=== PATIENT | female | born 1970 | race Caucasian/White ===

== ENCOUNTER 2018-09-19 06:32 | Observation (INO) | payer OTHER ==
[~2018-09-19] VITALS: Ht 158.5 cm; Wt 78.5 kg
[2018-09-19 09:15] VITALS: BP 113/55; PULSE 77; RESP 20
--- NOTE | 2018-09-19 10:17 | HP ---
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 She was in her usual state of health until June 14 when she developed heavy menses with clots. Usually she has light flow lasting 7 days with no clots, but 2 years ago she noticed brown discharge prior to her menses which was new. Since June menses have been heavier than normal and irregular. She has no had hot flashes during this time. Then yesterday she developed very heavy vaginal bleed with clots, soaking through pads every 1-2 hours. She presented to [place] ED. Initial vitals unremarkable, afebrile, not tachy, normotensive. Labs notable for microcytic anemia MCV 77, Hgb 6.2. Transfused 1 unit pRBCs. Also got pelvic ultrasound showing normal myometrium with no fibroids; but with thick endometrial stripe 16 mm and a cervical nabothian cyst. ROS Denies recent fever, chills, weight loss, anorexia, headache, vision changes, dyspnea, cough, chest pain/pressure/palpitations, nausea, vomiting, diarrhea, constipation, dysuria. PMH/Family/Social Past Medical History Iron-def anemia, not currently taking iron. Past Surgical History C section in 2008 Cervical dysplasia in childhood. Social History Alcohol Use: none Smoking Status: Never smoker Drug Use: none Exam/Review of Systems Vital Signs Vitals Vital Signs Date Temp Pulse Resp B/P (MAP) Pulse Ox O2 O2 Flow FiO2 Time Delivery Rate 09/19/18 98.0 77 20 113/55 99 Room Air 09:15 (74) Exam Exam Gen: Well developed overweight woman in no acute distress. Eyes: PERRL, no icterus HEENT: Moist mucous membranes, clear oropharynx Neck: No lymphadenopathy Card: Regular rate and rhythm, no murmurs Pulm: Clear to auscultation throughout. Abd: Soft, nontender, nondistended. Ext: No cyanosis/clubbing/edema : Pads in place not soaked through yet. BEVERLY COOK MD Sep 19, 2018 10:17
[2018-09-19] MEDS ORDERED: ONDANSETRON 4 MG INJ IV PRN (10:30)
[2018-09-19] MEDS ORDERED: NACL 0.9% 3 ML SYG IV SCH (10:30)
[2018-09-19] MEDS ORDERED: ACETAMINOPHEN 325 MG TAB PO PRN (10:30)
--- NOTE | 2018-09-19 11:21 | CONS ---
Assessment/Plan Assessment/Plan Assessment/Plan (Daily) 48-year-old perimenopausal with menometrorrhagia/abnormal uterine bleeding and severe anemia Status post 2 units of packed RBC blood transfusion I discussed with the patient that an endometrial biopsy should be done as an outpatient to rule out any evidence of possible endometrial carcinoma I recommended Provera 20 mg nightly and iron daily Patient's questions were answered and she understands the plan of care Patient should be arranged by complex case manager for an appointment with a lighting adviser as an outpatient Consultation Date/Type/Reason Admit Date/Time Sep 19, 2018 at 07:55 Date of Consultation: Sep 19, 2018 Type of Consult Gynecology Reason for Consultation Vaginal bleeding Date/Time of Note DATE: 09/19/18 TIME: 11:13 Hx of Present Illness Patient is a 48-year-old 4 para 4 who presents with chief complaint of menometrorrhagia/passing blood clots since June 2018 She was initially seen at a [facility] yesterday for severe vaginal bleeding and subsequently transferred to the [facility] this morning Pelvic ultrasound at [place] reviewed indicating uterus measuring 10.5 cm with an endometrial lining of 16 mm, no evidence of leiomyomas Bilateral adnexa within normal limits Patient currently is not on any medication and denies taking any oral contraception Medical history is negative Surgical history significant for x1 Family history significant mother who had a hysterectomy for fibroids Patient denies any family history of gynecology related cancers Social history is negative Constitutional: no complaints, improved Eyes: no complaints ENT: no complaints Respiratory: no complaints Cardiovascular: no complaints Gastrointestinal: no complaints Genitourinary: no complaints Musculoskeletal: no complaints Skin: no complaints Neurologic: no complaints Endocrine: no complaints Lymphatic: no complaints Psychological: no complaints, nl mood/affect Immunologic: no complaints Past Medical History Medical History: no pertinent history Medications Current Medications IV Flush (NS 3 ml) 3 ml PER PROTOCOL IV ; Start 09/19/18 at 10:30; Status UNV Ondansetron HCl (Zofran Inj) 4 mg Q6H PRN IV NAUSEA/VOMITING; Start 09/19/18 at 10:30; Status UNV Acetaminophen (Tylenol Tab) 650 mg Q6H PRN PO .PAIN 1-3 OR TEMP; Start 09/19/18 at 10:30; Status UNV Past Surgical History x1 Past Surgical Hx: other ( x1) Family History Significant Family History: no pertinent family hx Social History Alcohol Use: none Smoking Status: Never smoker Drug Use: none Exam/Review of Systems Exam Vitals Vital Signs Date Temp Pulse Resp B/P (MAP) Pulse Ox O2 O2 Flow FiO2 Time Delivery Rate 09/19/18 98.0 77 20 113/55 99 Room Air 09:15 (74) Constitutional: alert, oriented, well developed Results Result Diagram: 09/19/18 1042 Results 24hrs Laboratory Tests Test 09/19/18 10:42 White Blood Count 5.1 Red Blood Count 2.91 L Hemoglobin 7.9 L Hematocrit 24.5 L Mean Corpuscular Volume 84.2 Mean Corpuscular Hemoglobin 27.1 L Mean Corpuscular Hemoglobin Concent 32.2 Red Cell Distribution Width 15.7 H Platelet Count 247 Mean Platelet Volume 9.6 Immature Granulocytes % 0.400 Neutrophils % 66.5 Lymphocytes % 24.3 Monocytes % 6.6 Eosinophils % 1.6 Basophils % 0.6 Nucleated Red Blood Cells % 0.0 Immature Granulocytes # 0.020 Neutrophils # 3.4 Lymphocytes # 1.3 Monocytes # 0.3 Eosinophils # 0.1 Basophils # 0.0 Nucleated Red Blood Cells # 0.0 Prothrombin Time 13.4 Prothrombin Time Ratio 1.0 INR International Normalized Ratio 1.01 Activated Partial Thromboplast Time 28.6 Medications Medication Current Medications IV Flush (NS 3 ml) 3 ml PER PROTOCOL IV ; Start 09/19/18 at 10:30; Status UNV Ondansetron HCl (Zofran Inj) 4 mg Q6H PRN IV NAUSEA/VOMITING; Start 09/19/18 at 10:30; Status UNV Acetaminophen (Tylenol Tab) 650 mg Q6H PRN PO .PAIN 1-3 OR TEMP; Start 09/19/18 at 10:30; Status UNV PRO COSBY MD Sep 19, 2018 11:21
[2018-09-19 14:53] VITALS: BP 114/58; RESP 18
[2018-09-19] MEDS ORDERED: FER325 PO (15:06)
[2018-09-19] MEDS ORDERED: MEDR10TA2 PO (15:06)
--- NOTE | 2018-09-19 15:08 | PDOCDIS ---
Discharge Instructions DIAGNOSIS Discharge Diagnosis Heavy menses CONDITION [id number] Patient Condition: [id number] Good HOME CARE INSTRUCTIONS: [id number] Diet Instructions: [id number] Regular ACTIVITY: [id number] Activity Restrictions: [id number] No Restrictions FOLLOW UP/APPOINTMENTS Follow-up Plan 1. Take provera as prescribed nightly. This will reduce your flow but will take several days or weeks to start working. 2. For cramping, use a warm pad. Okay to take ibuprofen up to 800mg every 6 hours also. 3. Make an appointment with your model maker plaster in 1-2 weeks for endometrial biopsy 4. For unstoppable bleeding; or if you develop lightheadedness and severe fatigue that does not improve with rest, return to the emergency room. BEVERLY COOK MD Sep 19, 2018 15:08
== END 2018-09-19 16:09 | disposition home or self-care (01) ==
LOC: PP2 07:55 → INTOOBSV 07:55
PROVIDERS: ADMIT Internal Medicine; ATTEND Internal Medicine
DX: N93.9 Abnormal uterine and vaginal bleeding, unspecified (principal); D64.9 Anemia, unspecified; N92.1 Excessive and frequent menstruation with irregular cycle; Z78.0 Asymptomatic menopausal state
CPT/HCPCS: 80053; 82728; 83540; 85025; 85610; 85730; 87081; Z7500; Z7610; 99217; G0378